=== PATIENT | male | born 1955 | race Caucasian/White ===

== ENCOUNTER → 2016-07-01 | Outpatient (CLI) | payer OTHER ==
[~2016-07-01] MED LIST: AMLO10TA2 PO; AMLO5TAB2 PO; AMOX250S6 PO; ASCO-96 PO; ASPI325T4 PO; ATOR80TA75 PO; CALC1TAB PO; CHOL20002 PO; CLOP75TA PO; ESOM40CA PO; ESZO3TAB9 PO; FAMO20TA7 PO; FLUT9.9S NS; HYDR12.58 PO; HYDR15SO3 PO; LISI40TA PO; LOVA40TA2 PO; META800T PO; METF500T4 PO; METH500T98 PO; METO25TA35 PO; MOEX1TAB6 PO; MULT-108 PO; NAPR1TAB21 PO; OMEG1CAP24 PO; ONDA8TAB16 SL; PENNSAID TP; POTA10CA PO; POTA10TA11 PO; PROBIOTICS PO; VITA1TAB19 PO
== END | disposition home or self-care (01) ==
LOC: ROC 13:24
PROVIDERS: ATTEND Radiology Radiation Oncology
DX: Z51.0 Encounter for antineoplastic radiation therapy (principal); C09.8 Malignant neoplasm of overlapping sites of tonsil
CPT/HCPCS: 99212; G0463

== ENCOUNTER → 2016-10-28 | Outpatient (CLI) | payer OTHER | END | disposition home or self-care (01) | LOC: ROC 12:59 | PROVIDERS: ATTEND Radiology Radiation Oncology | DX: C09.9 Malignant neoplasm of tonsil, unspecified (principal) | CPT/HCPCS: 99212; G0463 ==

== ENCOUNTER → 2017-04-28 | Outpatient (CLI) | payer OTHER ==
[~2017-04-28] MED LIST changes: +ASPI325T17 PO; -ASPI325T4 PO; +ATOR-2 PO; -ATOR80TA75 PO; +ESZO3TAB28 PO; -ESZO3TAB9 PO
== END | disposition home or self-care (01) ==
LOC: ROC 04-28 08:43
PROVIDERS: ATTEND Radiology Radiation Oncology
DX: C09.9 Malignant neoplasm of tonsil, unspecified (principal)
CPT/HCPCS: 99212; G0463

== ENCOUNTER 2017-07-26 18:22 | Inpatient (IN) | payer OTHER ==
[~2017-07-26] VITALS: Ht 180.3 cm; Wt 94.8 kg
[2017-07-26] MEDS ORDERED: FENTANYL PF 100 MCG/2ML ONE (18:30)
[2017-07-26] MEDS ORDERED: TICAGRELOR 90 MG TABLET ONE (18:30)
[2017-07-26] MEDS ORDERED: MIDAZOLAM 1 MG/ML, 5ML ONE (18:30)
[2017-07-26] MEDS ORDERED: HEPARIN 1,000 UNITS/ML, 10ML ONE (18:31)
[2017-07-26] MEDS ORDERED: VERAPAMIL 2.5 MG/ML, 2ML ONE (18:31)
[2017-07-26] MEDS ORDERED: BIVALIRUDIN 250 MG ONE ×2 (18:31→19:58)
[2017-07-26] MEDS ORDERED: LIDOCAINE-MPF 2% ,5ML ONE (18:31)
[2017-07-26 18:37] LABS: MEAN CORPUSCULAR HGB CONC 34.3 g/dL (33.2-36.2); MEAN CORPUSCULAR VOLUME 96.2 fL (81-97); MEAN PLATELET VOLUME 8.8 fL (7.4-10.4); PLATELET COUNT 210 x10^3/uL (130-400); RED BLOOD COUNT 3.36 x10^6/uL (4.38-5.82); RED CELL DISTRIBUTION WIDTH 12.8 % (9.4-14.8)
[2017-07-26 18:46] LABS: INTERNATIONAL NORMALIZED RATIO 1.1 (0.93-1.1); PROTHROMBIN TIME 11.3 Seconds (9.6-11.5)
[2017-07-26] MEDS ORDERED: ONDANSETRON 2MG/ML, 2ML IVPush ONE (19:00)
[2017-07-26 19:02] LABS: MD SCAN
[2017-07-26 19:04] LABS: BASOPHILS % (AUTO) 0 % (0-1); EOSINOPHILS % (AUTO) 0 % (1-7); LYMPHOCYTES # (AUTO) 0.86 x10^3/uL (1-3.4); LYMPHOCYTES % (AUTO) 4 % (22-44); MONOCYTES # (AUTO) 0.98 x10^3/uL (0.2-0.8); MONOCYTES % (AUTO) 4 % (2-9); NEUTROPHILS # (AUTO) 20.88 x10^3/uL (1.8-6.8); NEUTROPHILS % (AUTO) 92 % (42-75)
[2017-07-26 20:04] VITALS: BP 106/61
[2017-07-26] MEDS ORDERED: BISACODYL 10 MG SUPP PR PRN (21:00)
[2017-07-26] MEDS ORDERED: ZOLPIDEM 5MG TABLET PO PRN (21:00)
[2017-07-26] MEDS ORDERED: BISACODYL 5 MG EC TABLET PO PRN (21:00)
[2017-07-26] MEDS ORDERED: ACETAMINOPHEN 325 MG TABLET PO PRN (21:00)
[2017-07-26] MEDS: TICAGRELOR 90 MG TABLET PO SCH (21:12)
[2017-07-26 21:21] LABS: CREATINE KINASE, TOTAL 4869 U/L (39-308)
[2017-07-26 22:15] VITALS: BP 114/60
[2017-07-26] MEDS: SODIUM CHLORIDE 0.9% 1,000 ML IV SCH (22:46)
[2017-07-27] MEDS ORDERED: DOPAMINE/D5W PMX 250 ML ONE (01:21)
[2017-07-27] MEDS: DOPAMINE/D5W PMX 250 ML IV PRN ×2 (01:47→11:41)
[2017-07-27 02:27] LABS: CHLORIDE 107 mmol/L (98-107)
[2017-07-27 02:28] LABS: ALBUMIN 2.9 g/dL (3.4-5.0); ANION GAP 12 mmol/L (5-15); CALCIUM 8.2 mg/dL (8.5-10.1); CREATININE 1.43 mg/dL (0.7-1.3)
[2017-07-27 02:45] LABS: CREATINE KINASE, TOTAL 3765 U/L (39-308)
[2017-07-27 03:20] LABS: TROPONIN I > 200.000 ng/mL (0.000-0.045)
[2017-07-27 04:00] VITALS: BP 84/47
[2017-07-27] MEDS: ASPIRIN 81 MG TABLET EC PO SCH (06:14)
[2017-07-27] MEDS: ONDANSETRON 2MG/ML, 2ML IV PRN ×2 (07:40→17:48)
[2017-07-27] MEDS: TICAGRELOR 90 MG TABLET PO SCH ×2 (09:25→20:23)
[2017-07-27] MEDS: ATORVASTATIN 80 MG TABLET PO SCH (09:25)
[2017-07-27] MEDS: SODIUM CHLORIDE 0.9% 1,000 ML IV SCH ×2 (09:27→17:49)
[2017-07-27 10:08] VITALS: BP 89/57
[2017-07-27 10:23] VITALS: BP 92/50
[2017-07-27 12:31] VITALS: BP 128/53
[2017-07-27 12:35] VITALS: BP 128/53
[2017-07-27] MEDS ORDERED: NOREPINEPHRINE 4 MG in SODIUM CHLORIDE 0.9% 246 ML IV PRN (13:00)
[2017-07-27 15:14] VITALS: BP 116/57
[2017-07-28] MEDS: SODIUM CHLORIDE 0.9% 1,000 ML IV SCH (03:05)
[2017-07-28 04:00] VITALS: BP 140/68
[2017-07-28 05:38] LABS: MEAN CORPUSCULAR HEMOGLOBIN 31.4 pg (27.5-34.5); MEAN CORPUSCULAR HGB CONC 33.9 g/dL (33.2-36.2); MEAN CORPUSCULAR VOLUME 92.6 fL (81-97); MEAN PLATELET VOLUME 9.5 fL (7.4-10.4); PLATELET COUNT 135 x10^3/uL (130-400); RED BLOOD COUNT 2.73 x10^6/uL (4.38-5.82); RED CELL DISTRIBUTION WIDTH 15.7 % (9.4-14.8)
[2017-07-28 05:44] LABS: CHLORIDE 113 mmol/L (98-107)
[2017-07-28 05:57] LABS: ALANINE AMINOTRANSFERASE 64 U/L (12-78); ALBUMIN 2.7 g/dL (3.4-5.0); ALKALINE PHOSPHATASE 77 U/L (45-117); ANION GAP 8 mmol/L (5-15); CALCIUM 7.5 mg/dL (8.5-10.1); CREATININE 0.81 mg/dL (0.7-1.3); TOTAL PROTEIN 5.3 g/dL (6.4-8.2)
[2017-07-28 06:06] LABS: MD YES
[2017-07-28 06:08] LABS: BAND#(MANUAL) 0.47 x10^3/uL; BANDS%(MANUAL) 2 % (0-7); LYMPH#(MANUAL) 1.19 x10^3/uL (1-3.4); LYMPHS% (MANUAL) 5 % (22-44); MONOS#(MANUAL) 1.42 x10^3/uL (0.3-2.7); MONOS% (MANUAL) 6 % (2-9); SEG#(MANUAL) 20.62 x10^3/uL (1.8-6.8); SEGS% (MANUAL) 87 % (42-75)
[2017-07-28 06:09] LABS: ANISOCYTOSIS 1+; POLYCHROMASIA 1+
[2017-07-28 06:10] LABS: <PLATELET ESTIMATE> ADEQUATE; <PLT MORPHOLOGY> NORMAL PLT MORPH
[2017-07-28] MEDS: ASPIRIN 81 MG TABLET EC PO SCH (06:28)
[2017-07-28] MEDS: TICAGRELOR 90 MG TABLET PO SCH ×2 (07:40→19:51)
[2017-07-28] MEDS: ONDANSETRON 2MG/ML, 2ML IV PRN (07:40)
[2017-07-28] MEDS: ATORVASTATIN 80 MG TABLET PO SCH (07:40)
[2017-07-28] MEDS ORDERED: BISACODYL 5 MG EC TABLET PO PRN (09:30)
[2017-07-28] MEDS ORDERED: MAGNESIUM HYDROXIDE 8%, 30ML UDC PO PRN (09:30)
[2017-07-28] MEDS: TAMSULOSIN 0.4 MG CAP.ER.24H PO SCH (10:18)
[2017-07-28] MEDS: POLYETHYLENE GLYCOL 17 GM PACKET PO SCH (10:18)
[2017-07-28] MEDS: DOCUSATE 100 MG CAPSULE PO SCH (19:51)
[2017-07-29 01:43] VITALS: BP 131/78
[2017-07-29] MEDS: ASPIRIN 81 MG TABLET EC PO SCH (04:52)
[2017-07-29] MEDS: ATORVASTATIN 80 MG TABLET PO SCH (08:54)
[2017-07-29] MEDS: POLYETHYLENE GLYCOL 17 GM PACKET PO SCH (08:54)
[2017-07-29] MEDS: TAMSULOSIN 0.4 MG CAP.ER.24H PO SCH (08:54)
[2017-07-29] MEDS: TICAGRELOR 90 MG TABLET PO SCH ×2 (08:54→20:34)
[2017-07-29] MEDS: DOCUSATE 100 MG CAPSULE PO SCH ×2 (08:54→20:33)
[2017-07-29] MEDS: ONDANSETRON 2MG/ML, 2ML IV PRN ×2 (08:54→20:34)
[2017-07-29] MEDS: LISINOPRIL 5 MG TABLET PO SCH ×2 (08:55→20:34)
[2017-07-29] MEDS: METOPROLOL TARTRATE 25 MG TABLET PO SCH ×2 (08:57→18:02)
[2017-07-29 08:58] VITALS: BP 137/84
[2017-07-29 14:10] VITALS: BP 134/75
[2017-07-29 18:00] VITALS: BP 129/80
[2017-07-29 20:40] VITALS: BP 132/81
[2017-07-30 01:18] VITALS: BP 148/84
[2017-07-30] MEDS: METOPROLOL TARTRATE 25 MG TABLET PO SCH ×2 (06:09→18:33)
[2017-07-30] MEDS: ONDANSETRON 2MG/ML, 2ML IV PRN ×3 (06:09→20:26)
[2017-07-30] MEDS: ASPIRIN 81 MG TABLET EC PO SCH (06:09)
[2017-07-30 07:21] VITALS: BP 145/85
[2017-07-30] MEDS: DOCUSATE 100 MG CAPSULE PO SCH ×2 (09:08→20:25)
[2017-07-30] MEDS: POLYETHYLENE GLYCOL 17 GM PACKET PO SCH (09:10)
[2017-07-30] MEDS: ATORVASTATIN 80 MG TABLET PO SCH (09:11)
[2017-07-30] MEDS: LISINOPRIL 5 MG TABLET PO SCH ×2 (09:11→20:26)
[2017-07-30] MEDS: TAMSULOSIN 0.4 MG CAP.ER.24H PO SCH (09:11)
[2017-07-30] MEDS: TICAGRELOR 90 MG TABLET PO SCH ×2 (09:11→20:26)
[2017-07-30 12:48] VITALS: BP 129/75
[2017-07-30 20:13] VITALS: BP 133/75
[2017-07-31 02:17] VITALS: BP 138/79
[2017-07-31] MEDS: ASPIRIN 81 MG TABLET EC PO SCH (05:24)
[2017-07-31] MEDS: METOPROLOL TARTRATE 25 MG TABLET PO SCH (05:24)
[2017-07-31] MEDS: ONDANSETRON 2MG/ML, 2ML IV PRN (05:24)
[2017-07-31 05:58] LABS: CHLORIDE 112 mmol/L (98-107)
[2017-07-31 06:16] LABS: ALANINE AMINOTRANSFERASE 147 U/L (12-78); ALBUMIN 2.9 g/dL (3.4-5.0); ALKALINE PHOSPHATASE 100 U/L (45-117); ANION GAP 8 mmol/L (5-15); BILIRUBIN,TOTAL 2.2 mg/dL (0.2-1.0); CALCIUM 8.1 mg/dL (8.5-10.1); CREATININE 0.83 mg/dL (0.7-1.3); TOTAL PROTEIN 6.1 g/dL (6.4-8.2)
[2017-07-31 07:43] VITALS: BP 149/86
[2017-07-31] MEDS: TAMSULOSIN 0.4 MG CAP.ER.24H PO SCH (08:26)
[2017-07-31] MEDS: TICAGRELOR 90 MG TABLET PO SCH (08:26)
[2017-07-31] MEDS: POLYETHYLENE GLYCOL 17 GM PACKET PO SCH (08:26)
[2017-07-31] MEDS: LISINOPRIL 5 MG TABLET PO SCH (08:26)
[2017-07-31] MEDS: DOCUSATE 100 MG CAPSULE PO SCH (08:27)
[2017-07-31] MEDS: ATORVASTATIN 80 MG TABLET PO SCH (08:27)
[2017-07-31] MEDS ORDERED: TICA90TA PO (09:33)
[2017-07-31] MEDS ORDERED: LISI5TAB7 PO (09:33)
[2017-07-31] MEDS ORDERED: ASPI-621 PO (09:33)
[2017-07-31] MEDS ORDERED: TAMS-11 PO (09:33)
[2017-07-31 14:07] VITALS: BP 135/80
== END 2017-07-31 16:10 | disposition home or self-care (01) | DRG 246 ==
LOC: ED 20:05 → EDIP 20:08 → CCU 20:11 → 5SO 07-28 18:57 → DCLOUNGE 07-31 15:48
PROVIDERS: ADMIT Internal Medicine Interventional Cardiology; ATTEND Internal Medicine Interventional Cardiology
PROC: 027135Z Dilation of Coronary Artery, Two Arteries with Two Drug-eluting Intraluminal Devices, Percutaneous Approach (ICD-10-PCS; principal; 2017-07-26)
PROC: 4A023N7 Measurement of Cardiac Sampling and Pressure, Left Heart, Percutaneous Approach (ICD-10-PCS; 2017-07-26)
PROC: B2111ZZ Fluoroscopy of Multiple Coronary Arteries using Low Osmolar Contrast (ICD-10-PCS; 2017-07-26)
PROC: B548ZZA Ultrasonography of Superior Vena Cava, Guidance (ICD-10-PCS; 2017-07-27)
PROC: 02HV33Z Insertion of Infusion Device into Superior Vena Cava, Percutaneous Approach (ICD-10-PCS; 2017-07-27)
PROC: 30233N1 Transfusion of Nonautologous Red Blood Cells into Peripheral Vein, Percutaneous Approach (ICD-10-PCS; 2017-07-27)
DX: I21.09 ST elevation (STEMI) myocardial infarction involving other coronary artery of anterior wall (principal); E43 Unspecified severe protein-calorie malnutrition; K72.00 Acute and subacute hepatic failure without coma; R57.0 Cardiogenic shock; D69.6 Thrombocytopenia, unspecified; I27.20 Pulmonary hypertension, unspecified; D64.9 Anemia, unspecified; D72.829 Elevated white blood cell count, unspecified; E78.5 Hyperlipidemia, unspecified; E87.6 Hypokalemia; I10 Essential (primary) hypertension; I25.10 Atherosclerotic heart disease of native coronary artery without angina pectoris; R33.9 Retention of urine, unspecified; I34.0 Nonrheumatic mitral (valve) insufficiency; K59.00 Constipation, unspecified; Z85.818 Personal history of malignant neoplasm of other sites of lip, oral cavity, and pharynx; Z92.21 Personal history of antineoplastic chemotherapy; Z87.891 Personal history of nicotine dependence; Z92.3 Personal history of irradiation
CPT/HCPCS: 36415; 36430; 36569; 71045; 76937; 77001; 80047; 80048; 80053; 82040; 82550; 82553; 83735; 84100; 84484; 85014; 85018; 85025; 85610; 85730; 86850; 86900; 86923; 87081; 93005; 93306; 93458; 99156; 99157; C1769; C1894; C8929; C9600; J0583; J1265; J1644; J2250; J2405; J3010; J3490; C1725; C1751; C1874; C1887; J7030; J7050; P9016; Q9967

== ENCOUNTER → 2017-10-04 | Outpatient (CLI) | payer OTHER ==
[~2017-10-04] MED LIST changes: +ASPI-621 PO; +LISI5TAB7 PO; -METF500T4 PO; +METF500T5 PO; +TAMS-11 PO; +TICA90TA PO
== END | disposition home or self-care (01) ==
LOC: ROC 09:49
PROVIDERS: ATTEND Radiology Radiation Oncology
DX: C09.9 Malignant neoplasm of tonsil, unspecified (principal)
CPT/HCPCS: 99212; G0463

== ENCOUNTER → 2017-10-06 | Outpatient (CLI) | payer OTHER | LOC: CFH 10:02 | PROVIDERS: ATTEND Registered Nurse | DX: Z12.2 Encounter for screening for malignant neoplasm of respiratory organs (principal); I25.10 Atherosclerotic heart disease of native coronary artery without angina pectoris; R91.8 Other nonspecific abnormal finding of lung field; F17.211 Nicotine dependence, cigarettes, in remission | CPT/HCPCS: G0297 ==

== ENCOUNTER 2017-10-20 10:55 | Day surgery (SDC) | payer OTHER ==
[2017-10-17 11:18] LABS: BASOPHILS # (AUTO) 0.03 x10^3/uL (0-0.1); BASOPHILS % (AUTO) 0 % (0-1); EOSINOPHILS % (AUTO) 1 % (1-7); LYMPHOCYTES # (AUTO) 0.39 x10^3/uL (1-3.4); LYMPHOCYTES % (AUTO) 5 % (22-44); MD NO; MEAN CORPUSCULAR HEMOGLOBIN 29.8 pg (27.5-34.5); MEAN CORPUSCULAR HGB CONC 32.8 g/dL (33.2-36.2); MEAN CORPUSCULAR VOLUME 90.8 fL (81-97); MEAN PLATELET VOLUME 8.9 fL (7.4-10.4); MONOCYTES % (AUTO) 8 % (2-9); NEUTROPHILS # (AUTO) 7.21 x10^3/uL (1.8-6.8); NEUTROPHILS % (AUTO) 86 % (42-75); PLATELET COUNT 216 x10^3/uL (130-400); RED BLOOD COUNT 4.32 x10^6/uL (4.38-5.82); RED CELL DISTRIBUTION WIDTH 15.7 % (9.4-14.8)
[2017-10-17 11:29] LABS: ALANINE AMINOTRANSFERASE 215 U/L (12-78); ALBUMIN 3.2 g/dL (3.4-5.0); ANION GAP 6 mmol/L (5-15); CHLORIDE 108 mmol/L (98-107); CREATININE 0.68 mg/dL (0.7-1.3)
[2017-10-17 11:31] LABS: ALKALINE PHOSPHATASE 438 U/L (45-117); BILIRUBIN,TOTAL 1.1 mg/dL (0.2-1.0); TOTAL PROTEIN 7.1 g/dL (6.4-8.2)
[~2017-10-20] VITALS: Ht 177.8 cm; Wt 80.4 kg
[~2017-10-20 10:55] MED LIST changes: +ASPI-496 PO
[2017-10-20] MEDS ORDERED: LACTATED RINGERS 1,000 ML IV SCH (11:38)
[2017-10-20 11:54] VITALS: BP 162/95
[2017-10-20] MEDS ORDERED: SCOPOLAMINE PATCH, 1.5MG PATCH.TD72 TD ONE (12:00)
[2017-10-20] MEDS ORDERED: ONDANSETRON 2MG/ML, 2ML ONE (13:37)
[2017-10-20] MEDS ORDERED: PROPOFOL 10 MG/ML, 20ML ONE (13:37)
[2017-10-20] MEDS ORDERED: PHENYLEPHRINE 10 MG/ML ONE (13:37)
[2017-10-20] MEDS ORDERED: SUCCINYLCHOLINE 20 MG/ML, 10ML ONE (13:37)
[2017-10-20] MEDS ORDERED: EPHEDRINE 50 MG/ML, 1ML ONE (13:37)
[2017-10-20] MEDS ORDERED: FENTANYL PF 100 MCG/2ML ONE (13:39)
[2017-10-20] MEDS ORDERED: OXYcodone 5 MG/5 ML ORAL.SOL UDC PO PRN (14:30)
[2017-10-20] MEDS ORDERED: FENTANYL PF 100 MCG/2ML IV PRN (14:30)
[2017-10-20] MEDS ORDERED: HYDROcodone/APAP 7.5-325MG/15ML UDC PO PRN (14:30)
[2017-10-20] MEDS ORDERED: ONDANSETRON ODT 8 MG PO PRN (14:30)
[2017-10-20] MEDS ORDERED: LABETALOL 5MG/ML, 20ML IV PRN (14:30)
[2017-10-20] MEDS ORDERED: hydrALAzine 20 MG/ML, 1ML IV PRN (14:30)
[2017-10-20] MEDS ORDERED: ACETAMINOPHEN 325 MG TABLET PO PRN (14:30)
[2017-10-20] MEDS ORDERED: ALBUTEROL SULFATE 2.5 MG/3 ML ONE (17:22)
[2017-10-20] MEDS ORDERED: ALBUTEROL SULFATE 2.5 MG/3 ML NPPB ONE (17:30)
== END 2017-10-20 18:15 | disposition home or self-care (01) ==
LOC: OR 10:55
PROVIDERS: ATTEND Internal Medicine Critical Care Medicine
DX: C34.91 Malignant neoplasm of unspecified part of right bronchus or lung (principal); R59.1 Generalized enlarged lymph nodes; I25.10 Atherosclerotic heart disease of native coronary artery without angina pectoris; I50.33 Acute on chronic diastolic (congestive) heart failure; I10 Essential (primary) hypertension; E78.2 Mixed hyperlipidemia; F17.200 Nicotine dependence, unspecified, uncomplicated; I25.2 Old myocardial infarction; J44.9 Chronic obstructive pulmonary disease, unspecified; Z79.82 Long term (current) use of aspirin; Z88.6 Allergy status to analgesic agent; Z88.8 Allergy status to other drugs, medicaments and biological substances
CPT/HCPCS: 31628; 31629; 31652; 36415; 80053; 85025; 88108; 88173; 88305; 94640; J0330; J2370; J2405; J2704; J3010; J7120; J7613; 88341; 88342; G0461

== ENCOUNTER → 2017-11-03 | Outpatient (CLI) | payer OTHER ==
[~2017-11-03] MED LIST changes: +GADOBUTROL 7.5 MMOL/7.5 ML PFS ONE
== END | disposition home or self-care (01) ==
LOC: RAD 13:20
PROVIDERS: ATTEND Internal Medicine Critical Care Medicine
DX: C34.90 Malignant neoplasm of unspecified part of unspecified bronchus or lung (principal); C79.51 Secondary malignant neoplasm of bone; C78.89 Secondary malignant neoplasm of other digestive organs; C78.7 Secondary malignant neoplasm of liver and intrahepatic bile duct; D17.0 Benign lipomatous neoplasm of skin and subcutaneous tissue of head, face and neck; G93.89 Other specified disorders of brain; I67.82 Cerebral ischemia
CPT/HCPCS: 70553; A9585

== ENCOUNTER 2017-11-27 11:40 | Inpatient (IN) | payer OTHER ==
[~2017-11-27] VITALS: Ht 177.8 cm; Wt 74.4 kg
[~2017-11-27 11:40] MED LIST changes: -GADOBUTROL 7.5 MMOL/7.5 ML PFS ONE
[2017-11-27] MEDS ORDERED: BUDE10.2 INH (12:25)
[2017-11-27] MEDS ORDERED: ATOR-2 PO (12:25)
[2017-11-27] MEDS ORDERED: TICA90TA PO (12:25)
[2017-11-27] MEDS ORDERED: METO-93 PO (12:25)
[2017-11-27] MEDS ORDERED: LORA-445 PO (12:26)
[2017-11-27] MEDS ORDERED: ONDANSETRON 2MG/ML, 2ML IVPush ONE (12:30)
[2017-11-27] MEDS ORDERED: SODIUM CHLORIDE 0.9% 1,000ML IVBOLUS ONE (12:30)
[2017-11-27] MEDS ORDERED: SODIUM CHLORIDE FLUSH 10ML SYR IVF ONE (12:30)
[2017-11-27] MEDS ORDERED: MORPHINE SULFATE 4 MG/ML, 1ML IVPush PRN (12:30)
[2017-11-27] MEDS ORDERED: ONDANSETRON 2MG/ML, 2ML ONE (13:04)
[2017-11-27] MEDS ORDERED: MORPHINE SULFATE 4 MG/ML, 1ML ONE (13:04)
[2017-11-27 13:13] LABS: MEAN CORPUSCULAR HEMOGLOBIN 30.8 pg (27.5-34.5); MEAN CORPUSCULAR HGB CONC 34.3 g/dL (33.2-36.2); MEAN CORPUSCULAR VOLUME 89.8 fL (81-97); MEAN PLATELET VOLUME 9.4 fL (7.4-10.4); PLATELET COUNT 277 x10^3/uL (130-400); RED BLOOD COUNT 3.89 x10^6/uL (4.38-5.82); RED CELL DISTRIBUTION WIDTH 15.9 % (9.4-14.8)
[2017-11-27 13:21] LABS: INTERNATIONAL NORMALIZED RATIO 1.2 (0.93-1.1); PROTHROMBIN TIME 12.4 Seconds (9.6-11.5)
[2017-11-27 13:25] LABS: ALBUMIN 2.5 g/dL (3.4-5.0); ANION GAP 12 mmol/L (5-15); CALCIUM 9.4 mg/dL (8.5-10.1); CHLORIDE 95 mmol/L (98-107)
[2017-11-27 13:39] LABS: ALANINE AMINOTRANSFERASE 136 U/L (12-78); ALKALINE PHOSPHATASE 1068 U/L (45-117); BILIRUBIN,TOTAL 4.3 mg/dL (0.2-1.0); CREATININE 1.05 mg/dL (0.7-1.3); TOTAL PROTEIN 7.2 g/dL (6.4-8.2)
[2017-11-27] MEDS ORDERED: NS + 40MEQ KCL 1,000 ML IV ONE ×2 (13:44→13:53)
[2017-11-27 13:46] LABS: BASOPHILS % (AUTO) 0 % (0-1); EOSINOPHILS % (AUTO) 0 % (1-7); LYMPHOCYTES # (AUTO) 0.27 x10^3/uL (1-3.4); LYMPHOCYTES % (AUTO) 1 % (22-44); MD MORPH REVIEW ONLY; MONOCYTES # (AUTO) 2.03 x10^3/uL (0.2-0.8); MONOCYTES % (AUTO) 9 % (2-9); NEUTROPHILS # (AUTO) 20.44 x10^3/uL (1.8-6.8); NEUTROPHILS % (AUTO) 90 % (42-75)
[2017-11-27 13:47] LABS: ANISOCYTOSIS 1+; POLYCHROMASIA 1+
[2017-11-27 13:48] LABS: <PLATELET ESTIMATE> ADEQUATE; <PLT MORPHOLOGY> NORMAL PLT MORPH
[2017-11-27] MEDS ORDERED: CEFTRIAXONE PMX 1GM/50ML 50 ML ONE (13:59)
[2017-11-27] MEDS ORDERED: CEFTRIAXONE 1,000 MG in SODIUM CHLORIDE 0.9% 50 ML IVPB ONE (14:00)
[2017-11-27 14:37] LABS: TROPONIN I 0.023 ng/mL (0.000-0.045)
[2017-11-27 14:53] VITALS: BP 144/75
[2017-11-27] MEDS ORDERED: ONDANSETRON 2MG/ML, 2ML IVPush PRN (15:00)
[2017-11-27] MEDS ORDERED: CEFEPIME 2 GM in DEXTROSE 5% 100 ML IV SCH (15:30)
[2017-11-27] MEDS ORDERED: VANCOMYCIN PER PHARMACY MC PRN (15:30)
[2017-11-27] MEDS ORDERED: VANCOMYCIN 1,400 MG in SODIUM CHLORIDE 0.9% 250 ML IVPB SCH (15:30)
[2017-11-27 15:46] LABS: HCT (SEDRATE) 32.7 % (39.2-51.8)
[2017-11-27] MEDS ORDERED: PHARMACOKINETIC MONITORING MC PRN (16:00)
[2017-11-27 16:30] LABS: CREATINE KINASE, TOTAL 46 U/L (39-308)
[2017-11-27 16:36] LABS: LDL/HDL RATIO 3.7 (0.5-3.0)
[2017-11-27 16:48] LABS: C-REACTIVE PROTEIN, QUANT > 19.00 mg/dL (0.02-0.49)
[2017-11-27] MEDS ORDERED: ZOLPIDEM 5MG TABLET PO PRN (17:00)
[2017-11-27 17:31] LABS: MICROSCOPIC INDICATED
[2017-11-27 17:32] LABS: CULTURE INDICATED? YES
[2017-11-27] MEDS: ONDANSETRON ODT 4 MG PO PRN (18:15)
[2017-11-27] MEDS: SODIUM CHLORIDE 0.9% 1,000 ML IV SCH (18:16)
[2017-11-27] MEDS: FAMOTIDINE 20 MG TABLET PO SCH (18:16)
[2017-11-27] MEDS: ENOXAPARIN 40 MG/0.4 ML SQ SCH (18:16)
[2017-11-27] MEDS ORDERED: OMNIPAQUE 350 MG/ML, 100ML BOTTLE ONE (19:12)
[2017-11-27 20:30] VITALS: BP 156/87
[2017-11-27] MEDS: FLUTICASONE NASAL SPRAY 16GM NAS SCH (21:29)
[2017-11-27] MEDS: TICAGRELOR 90 MG TABLET PO SCH (21:54)
[2017-11-27] MEDS: LORazepam 0.5MG TABLET PO SCH (21:54)
[2017-11-28 01:41] VITALS: BP 169/86
[2017-11-28] MEDS: SODIUM CHLORIDE 0.9% 1,000 ML IV SCH ×4 (01:53→15:51)
[2017-11-28 04:34] LABS: MEAN CORPUSCULAR HEMOGLOBIN 30.2 pg (27.5-34.5); MEAN CORPUSCULAR HGB CONC 33.5 g/dL (33.2-36.2); MEAN CORPUSCULAR VOLUME 90.1 fL (81-97); MEAN PLATELET VOLUME 8.9 fL (7.4-10.4); PLATELET COUNT 236 x10^3/uL (130-400); RED BLOOD COUNT 3.48 x10^6/uL (4.38-5.82); RED CELL DISTRIBUTION WIDTH 16.1 % (9.4-14.8)
[2017-11-28 04:40] LABS: ALANINE AMINOTRANSFERASE 121 U/L (12-78); ALBUMIN 2.2 g/dL (3.4-5.0); ANION GAP 11 mmol/L (5-15); CALCIUM 8.3 mg/dL (8.5-10.1); CHLORIDE 104 mmol/L (98-107)
[2017-11-28 04:43] LABS: ALKALINE PHOSPHATASE 949 U/L (45-117); BILIRUBIN,TOTAL 3.2 mg/dL (0.2-1.0); CREATININE 0.68 mg/dL (0.7-1.3); TOTAL PROTEIN 6.2 g/dL (6.4-8.2)
[2017-11-28 05:04] LABS: BASOPHILS % (AUTO) 0 % (0-1); EOSINOPHILS # (AUTO) 0.03 x10^3/uL (0-0.4); EOSINOPHILS % (AUTO) 0 % (1-7); LYMPHOCYTES # (AUTO) 0.26 x10^3/uL (1-3.4); LYMPHOCYTES % (AUTO) 1 % (22-44); MD SCAN; MONOCYTES # (AUTO) 1.76 x10^3/uL (0.2-0.8); MONOCYTES % (AUTO) 9 % (2-9); NEUTROPHILS # (AUTO) 17.17 x10^3/uL (1.8-6.8); NEUTROPHILS % (AUTO) 89 % (42-75)
[2017-11-28] MEDS: TAMSULOSIN 0.4 MG CAP.ER.24H PO SCH (07:58)
[2017-11-28] MEDS: LISINOPRIL 5 MG TABLET PO SCH (07:58)
[2017-11-28] MEDS: ASPIRIN 81 MG TABLET EC PO SCH (07:58)
[2017-11-28] MEDS: FAMOTIDINE 20 MG TABLET PO SCH ×2 (07:58→17:41)
[2017-11-28] MEDS: TICAGRELOR 90 MG TABLET PO SCH ×2 (07:58→20:41)
[2017-11-28] MEDS: METOPROLOL SUCCINATE 50 MG TAB.ER.24H PO SCH (07:59)
[2017-11-28] MEDS: ASCORBIC ACID 500 MG TABLET PO SCH (07:59)
[2017-11-28] MEDS: CHOLECALCIFEROL 1,000 UNIT TABLET PO SCH (07:59)
[2017-11-28] MEDS: MULTIVITS,STRESS FORMULA 1 TABLET PO SCH (07:59)
[2017-11-28] MEDS: CALCIUM/VITAMIN D3 250-125 TABLET PO SCH (07:59)
[2017-11-28] MEDS: FLUTICASONE NASAL SPRAY 16GM NAS SCH (08:01)
[2017-11-28] MEDS: FLUTICASONE/VILANTEROL 200-25MCG/INH INH SCH (08:01)
[2017-11-28 08:02] VITALS: BP 159/76
[2017-11-28] MEDS ORDERED: LORazepam 0.5MG TABLET PO SCH (09:00)
[2017-11-28] MEDS ORDERED: POTASSIUM CHLORIDE 40 MEQ in SODIUM CHLORIDE 0.9% 500 ML IV ONE (09:30)
[2017-11-28] MEDS: ONDANSETRON ODT 4 MG PO PRN (10:23)
[2017-11-28 13:12] VITALS: BP 179/91
[2017-11-28 13:59] VITALS: BP 169/89
[2017-11-28] MEDS ORDERED: VANCOMYCIN PER PHARMACY MC PRN (14:00)
[2017-11-28] MEDS ORDERED: ONDANSETRON 2MG/ML, 2ML IVPush PRN (14:00)
[2017-11-28] MEDS ORDERED: PHARMACOKINETIC MONITORING MC PRN (14:30)
[2017-11-28] MEDS: VANCOMYCIN 1,500 MG in SODIUM CHLORIDE 0.9% 250 ML IVPB SCH (15:51)
[2017-11-28] MEDS: CEFTRIAXONE 1,000 MG in SODIUM CHLORIDE 0.9% 50 ML IV SCH (17:41)
[2017-11-28 19:23] VITALS: BP 167/93
[2017-11-28] MEDS: DRONABINOL 5 MG CAPSULE PO SCH (20:40)
[2017-11-28] MEDS: ENOXAPARIN 40 MG/0.4 ML SQ SCH (20:41)
[2017-11-28] MEDS: LORazepam 0.5MG TABLET PO SCH (20:41)
[2017-11-29 01:50] VITALS: BP 160/86
[2017-11-29] MEDS: SODIUM CHLORIDE 0.9% 1,000 ML IV SCH ×2 (02:07→15:36)
[2017-11-29] MEDS: CALCIUM/VITAMIN D3 250-125 TABLET PO SCH (07:50)
[2017-11-29] MEDS: METOPROLOL SUCCINATE 50 MG TAB.ER.24H PO SCH (07:50)
[2017-11-29] MEDS: TICAGRELOR 90 MG TABLET PO SCH (07:50)
[2017-11-29] MEDS: ASPIRIN 81 MG TABLET EC PO SCH (07:50)
[2017-11-29] MEDS: MULTIVITS,STRESS FORMULA 1 TABLET PO SCH (07:50)
[2017-11-29] MEDS: LISINOPRIL 5 MG TABLET PO SCH (07:50)
[2017-11-29] MEDS: DRONABINOL 5 MG CAPSULE PO SCH ×2 (07:50→20:08)
[2017-11-29] MEDS: TAMSULOSIN 0.4 MG CAP.ER.24H PO SCH (07:50)
[2017-11-29] MEDS: CHOLECALCIFEROL 1,000 UNIT TABLET PO SCH (07:50)
[2017-11-29] MEDS: ASCORBIC ACID 500 MG TABLET PO SCH (07:51)
[2017-11-29] MEDS: FAMOTIDINE 20 MG TABLET PO SCH ×2 (07:57→15:37)
[2017-11-29 08:12] VITALS: BP 161/83
[2017-11-29 08:46] VITALS: BP 149/87
[2017-11-29] MEDS: FLUTICASONE/VILANTEROL 200-25MCG/INH INH SCH (08:47)
[2017-11-29] MEDS: VANCOMYCIN 1,500 MG in SODIUM CHLORIDE 0.9% 250 ML IVPB SCH (08:47)
[2017-11-29] MEDS: FLUTICASONE NASAL SPRAY 16GM NAS SCH (08:47)
[2017-11-29 10:18] LABS: MEAN CORPUSCULAR HEMOGLOBIN 30.6 pg (27.5-34.5); MEAN CORPUSCULAR HGB CONC 34.2 g/dL (33.2-36.2); MEAN CORPUSCULAR VOLUME 89.4 fL (81-97); MEAN PLATELET VOLUME 8.6 fL (7.4-10.4); PLATELET COUNT 236 x10^3/uL (130-400); RED BLOOD COUNT 3.21 x10^6/uL (4.38-5.82); RED CELL DISTRIBUTION WIDTH 16.1 % (9.4-14.8)
[2017-11-29 10:30] LABS: ALANINE AMINOTRANSFERASE 95 U/L (12-78); ANION GAP 10 mmol/L (5-15); CALCIUM 8.6 mg/dL (8.5-10.1); CHLORIDE 104 mmol/L (98-107); CREATININE 0.58 mg/dL (0.7-1.3)
[2017-11-29 10:32] LABS: ALKALINE PHOSPHATASE 845 U/L (45-117); TOTAL PROTEIN 5.9 g/dL (6.4-8.2)
[2017-11-29 10:47] LABS: BASOPHILS % (AUTO) 0 % (0-1); EOSINOPHILS # (AUTO) 0.01 x10^3/uL (0-0.4); EOSINOPHILS % (AUTO) 0 % (1-7); LYMPHOCYTES # (AUTO) 0.28 x10^3/uL (1-3.4); LYMPHOCYTES % (AUTO) 2 % (22-44); MD SCAN; MONOCYTES # (AUTO) 1.55 x10^3/uL (0.2-0.8); MONOCYTES % (AUTO) 9 % (2-9); NEUTROPHILS # (AUTO) 15.08 x10^3/uL (1.8-6.8); NEUTROPHILS % (AUTO) 89 % (42-75)
[2017-11-29 12:26] VITALS: BP 142/76
[2017-11-29] MEDS: CEFTRIAXONE 1,000 MG in SODIUM CHLORIDE 0.9% 50 ML IV SCH (18:08)
[2017-11-29 19:30] VITALS: BP 159/80
[2017-11-29] MEDS: LORazepam 0.5MG TABLET PO SCH (20:08)
[2017-11-30 00:35] VITALS: BP_SYST 169; BP_SYST 184; BP_DIAS 82; BP_DIAS 89
[2017-11-30] MEDS: VANCOMYCIN 1,500 MG in SODIUM CHLORIDE 0.9% 250 ML IVPB SCH (03:00)
[2017-11-30] MEDS: SODIUM CHLORIDE 0.9% 1,000 ML IV SCH ×2 (04:00→08:11)
[2017-11-30 07:34] VITALS: BP 165/83
[2017-11-30] MEDS: CALCIUM/VITAMIN D3 250-125 TABLET PO SCH (08:07)
[2017-11-30] MEDS: FAMOTIDINE 20 MG TABLET PO SCH ×2 (08:07→16:30)
[2017-11-30] MEDS: METOPROLOL SUCCINATE 50 MG TAB.ER.24H PO SCH (08:08)
[2017-11-30] MEDS: MULTIVITS,STRESS FORMULA 1 TABLET PO SCH (08:08)
[2017-11-30] MEDS: CHOLECALCIFEROL 1,000 UNIT TABLET PO SCH (08:08)
[2017-11-30] MEDS: ASCORBIC ACID 500 MG TABLET PO SCH (08:08)
[2017-11-30] MEDS: TAMSULOSIN 0.4 MG CAP.ER.24H PO SCH (08:08)
[2017-11-30] MEDS: DRONABINOL 5 MG CAPSULE PO SCH (08:08)
[2017-11-30] MEDS: LISINOPRIL 5 MG TABLET PO SCH (08:08)
[2017-11-30] MEDS: FLUTICASONE/VILANTEROL 200-25MCG/INH INH SCH (08:10)
[2017-11-30] MEDS: FLUTICASONE NASAL SPRAY 16GM NAS SCH (08:10)
[2017-11-30 13:22] VITALS: BP 170/93
== END 2017-11-30 17:55 | disposition hospice, home (50) | DRG 178 ==
LOC: ED 13:59 → 3NW 14:55
PROVIDERS: ADMIT Hospitalist; ATTEND Hospitalist
DX: J15.211 Pneumonia due to Methicillin susceptible Staphylococcus aureus (principal); C78.00 Secondary malignant neoplasm of unspecified lung; C78.7 Secondary malignant neoplasm of liver and intrahepatic bile duct; C79.51 Secondary malignant neoplasm of bone; N13.30 Unspecified hydronephrosis; C78.89 Secondary malignant neoplasm of other digestive organs; C78.1 Secondary malignant neoplasm of mediastinum; R04.2 Hemoptysis; E86.0 Dehydration; C76.0 Malignant neoplasm of head, face and neck; E11.9 Type 2 diabetes mellitus without complications; E78.5 Hyperlipidemia, unspecified; E87.6 Hypokalemia; G47.33 Obstructive sleep apnea (adult) (pediatric); I10 Essential (primary) hypertension; I25.10 Atherosclerotic heart disease of native coronary artery without angina pectoris; I25.2 Old myocardial infarction; K21.9 Gastro-esophageal reflux disease without esophagitis; R62.7 Adult failure to thrive; Z66 Do not resuscitate; R11.2 Nausea with vomiting, unspecified; R06.89 Other abnormalities of breathing; T45.1X5A Adverse effect of antineoplastic and immunosuppressive drugs, initial encounter; Y92.89 Other specified places as the place of occurrence of the external cause; Z85.89 Personal history of malignant neoplasm of other organs and systems; Z87.891 Personal history of nicotine dependence; Z90.49 Acquired absence of other specified parts of digestive tract; Z92.21 Personal history of antineoplastic chemotherapy; Z95.5 Presence of coronary angioplasty implant and graft
CPT/HCPCS: 36415; 71045; 71046; 74170; 76700; 80053; 80061; 80074; 81001; 82140; 82550; 83605; 83690; 83880; 84132; 84443; 84484; 85025; 85610; 85651; 85730; 86140; 87040; 87070; 87077; 87081; 87086; 87186; 87205; 87880; 93005; 93306; 96361; 96374; 96375; 99285; J0696; J1650; J2405; J3370; J3480; Q0162; Q0167; Q9967; J7030; J7040; J7050